=== PATIENT | female | born 1965 | race Caucasian/White ===

== ENCOUNTER 2019-03-07 16:27 | Inpatient (IN) | payer OTHER ==
[~2019-03-07] VITALS: Ht 162.6 cm; Wt 92.1 kg
--- OUTSIDE RECORDS SUMMARY | 2019-03-07 16:31 | XMS REPORT ---
[facility] Address Unknown Phone Unavailable Care Team Providers Care Web Art Director Name Role Phone Unavailable Unavailable Payers Payer Name Policy Type Policy Number Effective Date Expiration Date Problems This patient has no known problems. Allergies, Adverse Reactions, Alerts Allergy Name Allergy Type Status Severity Reaction(s) Onset Date Inactive Date Treating Clinician Comments No Known Allergies DA Active U 2019-03-06 00:00:00 No Known Intolerances DA Active U 2009-04-10 00:00:00 Medications This patient has no known medications. Results Test Description Test Time Test Comments Text Results Atomic Results Result Comments BREAST ULTRASOUND BILATERAL 2018-11-08 15:37:33 - BREAST ULTRASOUND BILATERALULTRASOUND OF BOTH BREASTS AND BOTH AXILLA: 11/08/2018CLINICAL: Abnormal mammogram. Comparison is made to exam dated 05/28/2015 ultrasound - [facility]. Real-time ultrasound of both breasts and both axilla and clinical breast exam was performed. There is a benign 6 mm cyst in the left breast central to the nipple that corresponds to the mammographic findings. No abnormalities were seen sonographically in the right breast or either axilla. Clinical breast exam unremarkable. IMPRESSION: BENIGN There is no sonographic evidence of malignancy. The 6 mm cyst in the left breast is benign. Resume annual screening mammography in one year. Yvette Shah M.D. dm/:11/08/2018 15:37:33 Vacuum Tank Tender: Tarah Givens , [facility] sent: BIRADS 1-2 Normal Ultrasound BI-RADS: 2 Benign SCR MAMM BILATERAL ALEXEI CAD DIGITAL 2018-09-30 08:34:36 - SCR MAMM BILATERAL ALEXEI CAD DIGITALBILATERAL DIGITAL SCREENING MAMMOGRAM 3D/2D WITH CAD: 09/29/2018CLINICAL: Asymptomatic. Digital breast tomosynthesis was performed in addition to routine CC and MLO views. Current mammographic images were evaluated by either a SplashCast M-Vu or a CybEye ImageChecker CAD (computer aided detection system). Comparison is made to exams dated 05/28/2015 mammogram and 05/26/2014 mammogram - [facility]. There are scattered fibroglandular tissues in both breasts. Left breast mass present in the central breast at middle depth.No other suspicious mass, architectural distortion, malignant type calcification, or lymph node abnormality detected. IMPRESSION: INCOMPLETE ASSESSMENT: ADDITIONAL IMAGING EVALUATION RECOMMENDEDLEFT BREAST: Mass in the central breast at middle depth. Ultrasound and possible tomosynthesis spot compression are recommended at this time.Jose F Case M.D. qn/:09/30/2018 08:34:36 Vacuum Tank Tender: Sarai Cho , [facility] sent: Additional Imaging Mammogram BI-RADS: 0 Indeterminate
[2019-03-07] MEDS ORDERED: ONDANSETRON HCL INJ 2MG/ML 2ML 2 MG/ML VIAL IV ONE (17:15)
[2019-03-07] MEDS ORDERED: SODIUM CHLORIDE 0.9% 1000ML 1,000 ML IV STA (17:15)
[2019-03-07 17:31] LABS: BASOPHILS % 0.2 % (0.0-1.0); HEMATOCRIT 44.4 % (34.2-44.1); HEMOGLOBIN 15.1 g/dL (12.0-16.0); LYMPHOCYTES # (AUTO) 1.6 (1.0-3.2); LYMPHOCYTES % 8.9 % (18.0-39.1); MEAN CORPUSCULAR HEMOGLOBIN 31.5 pg (28-32); MEAN CORPUSCULAR VOLUME 92.7 fL (81-99); MONOCYTES # (AUTO) 1.2 (0.2-0.8); MONOCYTES % 6.8 % (4.4-11.3); NEUTROPHILS # (AUTO) 15.1 (2.1-6.9); NEUTROPHILS % 83.5 % (38.7-80.0); PLATELET COUNT 323 x10e3/uL (140-360); RED BLOOD COUNT 4.79 x10e6/uL (3.6-5.1); RED CELL DISTRIBUTION WIDTH 12.4 % (11.7-14.4)
[2019-03-07 17:32] LABS: BILIRUBIN,URINE NEGATIVE (NEGATIVE); CLARITY,URINE SL CLOUDY (CLEAR); COLOR,URINE YELLOW (YELLOW); KETONES,URINE 1+ (NEGATIVE); LEUKOCYTE ESTERASE ,URINE NEGATIVE (NEGATIVE); NITRITE,URINE NEGATIVE (NEGATIVE); PROTEIN,URINE DIPSTICK NEGATIVE (NEGATIVE); URINE UROBILINOGEN 0.2 mg/dL (0.2 - 1)
[2019-03-07 17:55] LABS: BACTERIA,URINE MODERATE /HPF; EPITHELIAL CELLS,URINE MANY /LPF; RBC,URINE 0-5 /HPF (0-5)
[2019-03-07 17:59] LABS: ALANINE AMINOTRANSFERASE 23 IU/L (0-55); ALBUMIN 3.3 g/dL (3.5-5.0); ALBUMIN/GLOBULIN RATIO 0.9 (0.8-2.0); ALKALINE PHOSPHATASE 84 IU/L (40-150); AMYLASE 32 U/L (25-125); ANION GAP 13.5 mmol/L (8-16); BLOOD UREA NITROGEN 11 mg/dL (7-26); BUN/CREATININE RATIO 16 (6-25); CALCIUM 8.7 mg/dL (8.4-10.2); CARBON DIOXIDE 21 mmol/L (22-29); CHLORIDE 99 mmol/L (98-107); CREATINE KINASE 97 IU/L (29-168); EST GLOMERULAR FILTRATION RATE > 60 ML/MIN (60-); GLUCOSE 113 mg/dL (74-118); LIPASE 6 U/L (8-78); POTASSIUM 3.5 mmol/L (3.5-5.1); SODIUM 130 mmol/L (136-145)
--- NOTE | 2019-03-07 18:34 | Diagnostic Imaging Report ---
RIGHT UPPER QUADRANT ULTRASOUND TECHNIQUE: Ultrasound evaluation of the right upper quadrant abdomen. Color Doppler evaluation was utilized to supplement the evaluation. HISTORY: Gallstones, abdominal pain COMPARISON: None available. DISCUSSION: LIVER: No focal lesion identified. The liver measures 14 cm in length in the right mid-clavicular line. BILIARY: Sludge and small echogenic stones within the gallbladder. The sonographic Taylor's sign is reported as negative. Common bile duct measures 0.2 cm. RIGHT KIDNEY: 10 cm in length. No hydronephrosis, solid mass, or cystic lesion identified. PANCREAS: Partially obscured by regional bowel gas, but no abnormality identified within this limitation. PERITONEUM: No free fluid. VASCULATURE: The inferior vena cava is markedly obscured by regional bowel gas, the visualized portions of the aorta and inferior vena cava appear unremarkable. The portal vein is patent with hepatopedal flow. IMPRESSION: Cholelithiasis, without evidence of acute cholecystitis. Signed by: Dr. Hossein Meehan D.O., M.M.M. on 03/07/2019 6:31 PM
[2019-03-07] MEDS ORDERED: ONDANSETRON HCL INJ 2MG/ML 2ML 2 MG/ML VIAL IV PRN (19:15)
[2019-03-07] MEDS ORDERED: HYDROMORPHONE 1MG/1ML INJ IV PRN (19:15)
[2019-03-07] MEDS: METRONIDAZOLE 500MG/NS 100ML 100 ML IV SCH (19:15)
[2019-03-07] MEDS ORDERED: DEXTROSE 5%/LACTATED RINGERS 1,000 ML IV SCH (19:15)
[2019-03-07] MEDS ORDERED: SODIUM CHLORIDE 0.9% 1000ML 1,000 ML ONE (20:16)
[2019-03-07] MEDS: PANTOPRAZOLE 40 MG 10ML VIAL IV SCH (20:24)
[2019-03-07] MEDS: HYDROMORPHONE 1MG/1ML INJ IV PRN (20:55)
[2019-03-07] MEDS: CEFTRIAXONE SOD 2 GM/NS 100 ML 100 ML IV SCH (20:56)
[2019-03-07] MEDS: DEXTROSE 5%/LACTATED RINGERS 1,000 ML IV SCH (21:33)
[2019-03-08] VITALS (11 sets, daily range): BP systolic 96–135; BP diastolic 53–80
[2019-03-08] MEDS ORDERED: METRONIDAZOLE 500MG/NS 100ML 100 ML IV SCH
[2019-03-08] MEDS: METRONIDAZOLE 500MG/NS 100ML 100 ML IV SCH ×5 (01:05→17:46)
--- NOTE | 2019-03-08 01:30 | NUR ---
PATIENT AOX4 NO SIGNS OF RESPIRATORY DISTRESS NOTED. FAMILY MEMBER IS PRESENT AT BEDSIDE AND PATIENT VOICED PAIN AT A LEVEL OF 4 AND WAS PREVIOUSLY MEDICATED IN ER. IV FLUIDS ARE RUNNING AT ORDERED RATE, BED IS LOCKED AND IN LOWEST POSITION, CALL LIGHT WITHIN EASY REACH, WILL CONTINUE TO MONITOR.
[2019-03-08] MEDS: HYDROMORPHONE 1MG/1ML INJ IV PRN ×3 (05:20→21:14)
[2019-03-08] MEDS: ONDANSETRON HCL INJ 2MG/ML 2ML 2 MG/ML VIAL IV PRN ×3 (05:20→21:14)
[2019-03-08] MEDS: DEXTROSE 5%/LACTATED RINGERS 1,000 ML IV SCH ×3 (06:55→23:35)
[2019-03-08 07:32] LABS: BASOPHILS % 0.2 % (0.0-1.0); EOSINOPHILS # (AUTO) 0.1 (0.0-0.4); EOSINOPHILS % 0.3 % (0.0-6.0); HEMATOCRIT 39.8 % (34.2-44.1); HEMOGLOBIN 13.5 g/dL (12.0-16.0); LYMPHOCYTES # (AUTO) 1.5 (1.0-3.2); LYMPHOCYTES % 10.5 % (18.0-39.1); MEAN CORPUSCULAR HEMOGLOBIN 32.1 pg (28-32); MEAN CORPUSCULAR HGB CONC 33.9 g/dL (31-35); MEAN CORPUSCULAR VOLUME 94.5 fL (81-99); MONOCYTES # (AUTO) 1.2 (0.2-0.8); NEUTROPHILS # (AUTO) 11.7 (2.1-6.9); NEUTROPHILS % 80.7 % (38.7-80.0); PLATELET COUNT 288 x10e3/uL (140-360); RED BLOOD COUNT 4.21 x10e6/uL (3.6-5.1); RED CELL DISTRIBUTION WIDTH 12.7 % (11.7-14.4)
[2019-03-08 07:57] LABS: ALANINE AMINOTRANSFERASE 18 IU/L (0-55); ALBUMIN 2.7 g/dL (3.5-5.0); ALBUMIN/GLOBULIN RATIO 0.9 (0.8-2.0); ALKALINE PHOSPHATASE 65 IU/L (40-150); AMYLASE 26 U/L (25-125); ANION GAP 10.6 mmol/L (8-16); BLOOD UREA NITROGEN 7 mg/dL (7-26); BUN/CREATININE RATIO 10 (6-25); CALCIUM 8.2 mg/dL (8.4-10.2); CARBON DIOXIDE 24 mmol/L (22-29); CHLORIDE 105 mmol/L (98-107); CREATININE, SERUM 0.68 mg/dL (0.57-1.11); EST GLOMERULAR FILTRATION RATE > 60 ML/MIN (60-); GLUCOSE 126 mg/dL (74-118); LIPASE 8 U/L (8-78); POTASSIUM 3.6 mmol/L (3.5-5.1); SODIUM 136 mmol/L (136-145)
[2019-03-08] MEDS ORDERED: PANTOPRAZOLE 40 MG 10ML VIAL IV SCH (09:00)
--- NOTE | 2019-03-08 09:09 | NUR ---
PATIENT OFF THE UNIT TO OR- PATIENT IN STABLE CONDITION WITH NO S/S OF RESPIRATORY DISTRESS.
[2019-03-08] MEDS ORDERED: BUPIVACAINE 0.25%/EPI 30ML SDV INJ ONE (09:20)
[2019-03-08] MEDS ORDERED: MEPERIDINE HCL INJ 25 MG/ML VIAL ONE (11:52)
[2019-03-08] MEDS ORDERED: FENTANYL CITRATE/PF 100MCG/2 ML INJ ONE ×2 (12:02→14:56)
--- NOTE | 2019-03-08 12:16 | Operative Report ---
DATE OF PROCEDURE: 03/08/2019 SURGEON: Malcolm Cho MD PREOPERATIVE DIAGNOSIS: Acute cholecystitis. POSTOPERATIVE DIAGNOSES: Acute cholecystitis with hydrops of the gallbladder and pregangrenous changes of the gallbladder. PROCEDURE PERFORMED: Laparoscopic cholecystectomy with decompression of hydrops of the gallbladder. PRECAST CONCRETE IRONWORKER: Christina Carrion, licensed surgical aides teacher. ESTIMATED BLOOD LOSS: Minimal. DRAINS: None. COMPLICATIONS: None. INDICATION AND FINDINGS: This patient is a 53-year-old female who was admitted complaining of severe nausea, vomiting, and abdominal pain. The patient had been seen first at [facility] in the local area. Discharged home. She persisted with the pain. She went to one of the local hospitals in the area and apparently was also discharged home. She presented to our office as an urgent case, self-referred, complaining of severe abdominal pain, nausea, vomiting. The patient at the [facility] had a CT scan that revealed distended gallbladder with stones. Her white count was 13,000. The patient was then admitted for laparoscopic cholecystectomy urgently. INTRAOPERATIVE FINDINGS: Acute cholecystitis with pregangrenous changes and hydrops of the gallbladder. There were severe inflammatory changes in the right upper quadrant due to above. We were able to perform the laparoscopic cholecystectomy after identifying the triangle of safety, namely the cystic duct at the junction with the common bile duct, the cystic artery, and a plate of the liver. At that point, we transected the cystic duct and the cystic artery. DESCRIPTION OF PROCEDURE: With the patient lying on the operative table in the supine position, after administration of general anesthesia, she was prepped and draped for laparoscopic cholecystectomy. The procedure was begun by establishing the pneumoperitoneum in the right upper quadrant midclavicular line because she was an obese lady, and then we insufflated the pneumoperitoneum to 15 mm of pressure, introduced the camera under direct vision. We placed a 10/11 trocar in the umbilical location and then we placed a 10-mm trocar in the subxiphoid port and then another 5-mm trocar in the right anterior axillary line. When we then did general laparoscopy, we found the gallbladder to be tense, distended with thickened inflamed wall with adhesions of the gallbladder to the omentum, which were then bluntly and gently. Then, we decompressed the gallbladder. Then, we went ahead and placed a fifth trocar in the left upper quadrant to gain exposure to the hepatoduodenal ligament on the operative field. We began then the dissection high on the gallbladder until we identified the cystic duct. The junction with the common bile duct was eventually seen. We continued the dissection on the hepatoduodenal ligament until we found the cystic artery, both anterior and posterior branches as well as identify the liver plate. At that point, we transected the cystic duct three times distally, once proximally, and continued the dissection until we identified the cystic arteries and those were transected between two titanium clips distally and once proximally and then we took down the gallbladder from the liver bed using electrocautery dissection. At some point, the dissection was continued. The gallbladder wall was pliable and we got into the gallbladder wall. There was some spillage of bile and stones that were removed. We then grasped the lip of the gallbladder wall and then we resected that from the liver bed, removing all the remaining gallbladder. We went ahead and then placed the gallbladder in an endobag and removed through the umbilical port. After we did that, we inspected the operative field. We made sure that there was no oozing, no bowel leak, no bleeding. We irrigated the operative field, and then we placed a 10-mm flat Néstor-Johns drain in the right upper quadrant near the foramen of [place], brought out through the right anterior axillary line trocar and secured there with 2-0 silk, connected it to self-suction. We then released the pneumoperitoneum and closed the wounds using #0 Vicryl for the umbilical fascia, 3-0 Vicryl for the subcutaneous tissue in that location as well as the subxiphoid port, and the skin of all the ports was closed using kimberly. A 0.25% Marcaine with epinephrine was given as a local block at the end of the case. The patient tolerated the procedure well and was taken to the recovery room in stable condition. MD KAVEH Miller/[place] /[id number]
--- NOTE | 2019-03-08 12:37 | NUR ---
PATIENT BACK ON THE UNIT- PATIENT IN STABLE CONDITION WITH NO S/S OF RESPIRATORY DISTRESS. IV ANTIBIOTIC INFUSING. TROCAR SITES NOTED TO ANTERIOR ABD- LUCIANA DRAIN NOTED TO RUQ TROCAR SITE (MINIMUM DRAINAGE NOTED AT THIS TIME. )
--- NOTE | 2019-03-08 14:55 | NUR ---
Visit made by the Spiritual Care Department Pastoral Visitor, Jennifer Sheffield. PV provided pastoral presence, prayer, hospitality, and supportive listening. Pastoral Visitor informed pt/family of the scope of [employer] and availability. BELKYS FLORES Director Of Food And Nutrition Services Spiritual Care Department O: [phone] Pager: [phone] ([phone] number calling from)
[2019-03-08] MEDS ORDERED: MIDAZOLAM HCL 2 MG/2 ML VIAL ONE (14:56)
[2019-03-08] MEDS ORDERED: ROCURONIUM BROMIDE 10 MG/ML 5ML VIAL ONE (18:42)
[2019-03-08] MEDS ORDERED: DEXAMETHASONE SOD PHOS INJ 4 MG/ML VIAL ONE (18:42)
[2019-03-08] MEDS ORDERED: PROPOFOL IV EMULSION 10 MG/ML 20 ML VIAL ONE (18:42)
[2019-03-08] MEDS ORDERED: KETOROLAC TROMETHAMINE 30 MG/ML VIAL ONE (18:42)
[2019-03-08] MEDS ORDERED: PHENYLEPHRINE HCL 1% 10 MG/ML VIAL ONE (18:42)
[2019-03-08] MEDS ORDERED: NEOSTIGMINE 5 MG/5ML SYR ONE (18:42)
[2019-03-08] MEDS ORDERED: ONDANSETRON HCL INJ 2MG/ML 2ML 2 MG/ML VIAL ONE (18:42)
[2019-03-08] MEDS ORDERED: SEVOFLURANE INHAL SOLN 250 ML PEN BTL ONE (18:42)
[2019-03-08] MEDS ORDERED: GLYCOPYRROLATE INJ 1MG/ 5 ML SYR ONE (18:42)
[2019-03-08] MEDS ORDERED: LIDOCAINE HCL 2% LOCAL INJ 5 ML SDV VIAL INJ ONE (18:42)
--- NOTE | 2019-03-08 19:16 | NUR ---
PATIENT IS IN STABLE CONDITION WITH NO S/S OF RESPIRATORY DISTRESS. PAIN MEDICATION RECENTLY GIVEN. IV FLUIDS INFUSING. TROCAR SITES INTACT- LUCIANA DRAINING. CALL LIGHT IS WITHIN REACH, PATIENT INSTRUCTED TO CALL FOR ASSISTANCE NEEDED. REPORT GIVEN TO ONCOMING NURSE.
[2019-03-08] MEDS: CEFTRIAXONE SOD 2 GM/NS 100 ML 100 ML IV SCH (20:15)
[2019-03-08] MEDS: PANTOPRAZOLE 40 MG 10ML VIAL IV SCH (20:15)
--- NOTE | 2019-03-08 20:15 | NUR ---
PATIENT IS IN STABLE CONDITION NO SIGNS OF DISTRESS NOTED. PATIENT HAS TROCAR SITE ON RIGHT SIDE OF ABDOMEN AND LUCIANA DRAIN FROM PREVIOUS CHOLECYSTECTOMY. FAMILY MEMBER IS PRESENT AT BEDSIDE AND PATIENT VOICED PAIN AT A LEVEL OF 4 AND WAS PREVIOUSLY MEDICATED BY DAY NURSE. IV FLUIDS ARE RUNNING AT ORDERED RATE, BED IS LOCKED AND IN LOWEST POSITION, CALL LIGHT WITHIN EASY REACH, WILL CONTINUE TO MONITOR.
[2019-03-09] VITALS (9 sets, daily range): BP systolic 89–123; BP diastolic 59–80
[2019-03-09] MEDS: METRONIDAZOLE 500MG/NS 100ML 100 ML IV SCH ×4 (01:30→18:00)
[2019-03-09] MEDS: HYDROMORPHONE 1MG/1ML INJ IV PRN ×5 (01:40→23:30)
[2019-03-09] MEDS: ONDANSETRON HCL INJ 2MG/ML 2ML 2 MG/ML VIAL IV PRN (01:40)
--- NOTE | 2019-03-09 01:45 | NUR ---
PATIENTS IV BEGAN TO LEAK FROM RIGHT AC SITE AND PATIENT VOICED BURNING AT THE AREA. NEW IV HAS BEEN PLACED ON RIGHT WRIST AND IS PATENT AND INTACT.
--- NOTE | 2019-03-09 08:00 | NUR ---
Pt in bed. Aox4 and able to verbalize needs. Pt continues on IV fluids and well tolerated. Pain to abdomen after zofia/genie. Dressings are intact with not drainage noted. LUCIANA drain to right lower quadrant with serosanguineous drainage noted.
[2019-03-09 09:14] LABS: BASOPHILS % 0.1 % (0.0-1.0); EOSINOPHILS # (AUTO) 0.1 (0.0-0.4); EOSINOPHILS % 0.4 % (0.0-6.0); HEMATOCRIT 37.2 % (34.2-44.1); HEMOGLOBIN 12.4 g/dL (12.0-16.0); LYMPHOCYTES % 13.8 % (18.0-39.1); MEAN CORPUSCULAR HEMOGLOBIN 31.6 pg (28-32); MEAN CORPUSCULAR HGB CONC 33.3 g/dL (31-35); MEAN CORPUSCULAR VOLUME 94.9 fL (81-99); MONOCYTES # (AUTO) 1.2 (0.2-0.8); MONOCYTES % 8.3 % (4.4-11.3); NEUTROPHILS # (AUTO) 10.9 (2.1-6.9); PLATELET COUNT 276 x10e3/uL (140-360); RED BLOOD COUNT 3.92 x10e6/uL (3.6-5.1); RED CELL DISTRIBUTION WIDTH 13.1 % (11.7-14.4)
[2019-03-09 09:40] LABS: ALANINE AMINOTRANSFERASE 34 IU/L (0-55); ALBUMIN 2.4 g/dL (3.5-5.0); ALBUMIN/GLOBULIN RATIO 0.8 (0.8-2.0); ALKALINE PHOSPHATASE 55 IU/L (40-150); ANION GAP 9.3 mmol/L (8-16); BLOOD UREA NITROGEN 9 mg/dL (7-26); BUN/CREATININE RATIO 13 (6-25); CALCIUM 8.3 mg/dL (8.4-10.2); CARBON DIOXIDE 23 mmol/L (22-29); CHLORIDE 107 mmol/L (98-107); CREATININE, SERUM 0.67 mg/dL (0.57-1.11); EST GLOMERULAR FILTRATION RATE > 60 ML/MIN (60-); GLUCOSE 117 mg/dL (74-118); POTASSIUM 3.3 mmol/L (3.5-5.1); SODIUM 136 mmol/L (136-145)
[2019-03-09] MEDS ORDERED: HYDROCODONE/APAP 7.5MG-325MG 1 EA TAB PO PRN (10:00)
[2019-03-09] MEDS: DEXTROSE 5%/LACTATED RINGERS 1,000 ML IV SCH (12:52)
--- NOTE | 2019-03-09 19:20 | NUR ---
Completed bedside report with morning nurse. Pt alert and orient to name. Lying in bed HOB 75 degrees. Denies pain at this time. Call reyna within reach. Will continue to monitor.
[2019-03-09] MEDS: CEFTRIAXONE SOD 2 GM/NS 100 ML 100 ML IV SCH (19:30)
[2019-03-09] MEDS: PANTOPRAZOLE 40 MG 10ML VIAL IV SCH (19:45)
[2019-03-10] MEDS ORDERED: ACETAMINOPHEN 1000 MG/100 ML 0 ML IV ONE (03:35)
[2019-03-10 04:05] VITALS: BP 100/57
[2019-03-10] MEDS: DEXTROSE 5%/LACTATED RINGERS 1,000 ML IV SCH (05:30)
[2019-03-10] MEDS: METRONIDAZOLE 500MG/NS 100ML 100 ML IV SCH ×2 (05:30)
[2019-03-10 06:08] LABS: BASOPHILS % 0.3 % (0.0-1.0); EOSINOPHILS # (AUTO) 0.3 (0.0-0.4); HEMATOCRIT 37.9 % (34.2-44.1); HEMOGLOBIN 12.6 g/dL (12.0-16.0); LYMPHOCYTES # (AUTO) 2.4 (1.0-3.2); LYMPHOCYTES % 17.8 % (18.0-39.1); MEAN CORPUSCULAR HEMOGLOBIN 31.5 pg (28-32); MEAN CORPUSCULAR HGB CONC 33.2 g/dL (31-35); MEAN CORPUSCULAR VOLUME 94.8 fL (81-99); MONOCYTES # (AUTO) 1.1 (0.2-0.8); MONOCYTES % 8.5 % (4.4-11.3); NEUTROPHILS # (AUTO) 9.5 (2.1-6.9); PLATELET COUNT 246 x10e3/uL (140-360)
[2019-03-10 06:31] LABS: ALANINE AMINOTRANSFERASE 29 IU/L (0-55); ALBUMIN 2.4 g/dL (3.5-5.0); ALBUMIN/GLOBULIN RATIO 0.8 (0.8-2.0); ALKALINE PHOSPHATASE 58 IU/L (40-150); BLOOD UREA NITROGEN 10 mg/dL (7-26); BUN/CREATININE RATIO 15 (6-25); CALCIUM 8.1 mg/dL (8.4-10.2); CARBON DIOXIDE 24 mmol/L (22-29); CHLORIDE 107 mmol/L (98-107); CREATININE, SERUM 0.65 mg/dL (0.57-1.11); EST GLOMERULAR FILTRATION RATE > 60 ML/MIN (60-); GLUCOSE 103 mg/dL (74-118); SODIUM 138 mmol/L (136-145)
[2019-03-10 08:00] VITALS: BP 109/69
[2019-03-10 11:47] VITALS: BP 97/71
[2019-03-10] MEDS ORDERED: POTASSIUM CHLORIDE 20 MEQ TAB CR PO STA (11:58)
--- NOTE | 2019-03-10 11:58 | Discharge Summary ---
ADMITTING DIAGNOSIS: Acute cholecystitis. DISCHARGE DIAGNOSIS: Acute cholecystitis with pregangrenous changes. PROCEDURE PERFORMED: Laparoscopic cholecystectomy on 03/07/2019. HISTORY OF PRESENT ILLNESS AND HOSPITALIZATION COURSE: The patient was admitted from my office with acute cholecystitis. She had been seen in 2 different emergency rooms in the local area and discharged home. The patient was admitted, given intravenous antibiotics, fluids, and then taken to the operating room where she underwent the previously described procedure. POSTOPERATIVE COURSE: The patient received intravenous antibiotics until discharge. Diet was advanced to regular. At the time she was discharged, was tolerating that well. She had a Néstor-Johns drain that was draining serosanguineous fluid in small amounts and this was removed on the day of discharge. The wounds were healing well. She was discharged in stable condition with instructions not to do lifting more than 10 pounds. To follow up in my office in 10 days following discharge. Medications were Tylenol #3, #40, and Levaquin 500 one p.o. for five days. MD KAVEH Miller/[place] /[id number]
[2019-03-10] MEDS ORDERED: TYLENOL WITH C1 EACH PO (12:10)
[2019-03-10] MEDS ORDERED: LEVAQUIN500 MG PO (12:11)
--- NOTE | 2019-03-10 12:44 | NUR ---
Pt discharge home at this time. Right lower quadrant LUCIANA drain was discontinued per physician prior to discharge. Pt verbalized understanding of all discharge instructions and follow up appts. Pt sent home with prescriptions for pain medications and for antibiotics.
== END 2019-03-10 12:53 | disposition home or self-care (01) | DRG 418 ==
LOC: ER 16:27 → ERHOLD 20:36 → MED/SURG3 03-08 00:39
PROVIDERS: ADMIT Surgery; ATTEND Surgery
PROC: 0FT44ZZ Resection of Gallbladder, Percutaneous Endoscopic Approach (ICD-10-PCS; principal; 2019-03-08 09:42)
DX: K80.00 Calculus of gallbladder with acute cholecystitis without obstruction (principal); K82.1 Hydrops of gallbladder; K82.A1 Gangrene of gallbladder in cholecystitis; E86.0 Dehydration
CPT/HCPCS: 36415; 76705; 80053; 81001; 82150; 82550; 82553; 83690; 84484; 85025; 87086; 88304; 93005; 99284; C1766; J0696; J1100; J1170; J1885; J2001; J2175; J2250; J2370; J2405; J3010; J7030

== ENCOUNTER 2019-03-13 07:34 | Inpatient (IN) | payer OTHER ==
[~2019-03-13] VITALS: Ht 162.6 cm; Wt 88.2 kg
[~2019-03-13 07:34] MED LIST: LEVAQUIN500 MG PO; TYLENOL WITH C1 EACH PO
[2019-03-13] MEDS ORDERED: ONDANSETRON HCL INJ 2MG/ML 2ML 2 MG/ML VIAL ONE (07:42)
[2019-03-13] MEDS ORDERED: ONDANSETRON HCL INJ 2MG/ML 2ML 2 MG/ML VIAL IV STA ×2 (07:45→07:49)
[2019-03-13] MEDS ORDERED: SODIUM CHLORIDE 0.9% 1000ML 1,000 ML IV STA (07:45)
[2019-03-13] MEDS ORDERED: PANTOPRAZOLE 40 MG 10ML VIAL IV STA ×2 (07:45→07:49)
[2019-03-13] MEDS ORDERED: PANTOPRAZOLE 40 MG 10ML VIAL ONE (07:48)
[2019-03-13] MEDS ORDERED: SODIUM CHLORIDE 0.9% 1000ML 1,000 ML ONE (07:48)
[2019-03-13] MEDS ORDERED: SODIUM CHLORIDE 0.9% 1000ML 1,000 ML IV ONE (08:00)
[2019-03-13 08:02] LABS: BASOPHILS % 0.2 % (0.0-1.0); EOSINOPHILS % 0.1 % (0.0-6.0); HEMATOCRIT 40.9 % (34.2-44.1); HEMOGLOBIN 14.3 g/dL (12.0-16.0); LYMPHOCYTES # (AUTO) 1.2 (1.0-3.2); MEAN CORPUSCULAR HEMOGLOBIN 31.8 pg (28-32); MEAN CORPUSCULAR VOLUME 91.1 fL (81-99); MONOCYTES % 6.5 % (4.4-11.3); NEUTROPHILS # (AUTO) 12.7 (2.1-6.9); NEUTROPHILS % 84.7 % (38.7-80.0); PLATELET COUNT 342 x10e3/uL (140-360); RED BLOOD COUNT 4.49 x10e6/uL (3.6-5.1); RED CELL DISTRIBUTION WIDTH 12.7 % (11.7-14.4)
[2019-03-13 08:07] LABS: BILIRUBIN,URINE MODERATE (NEGATIVE); CLARITY,URINE CLEAR (CLEAR); COLOR,URINE YELLOW (YELLOW); KETONES,URINE 1+ (NEGATIVE); LEUKOCYTE ESTERASE ,URINE NEGATIVE (NEGATIVE); NITRITE,URINE NEGATIVE (NEGATIVE); PROTEIN,URINE DIPSTICK NEGATIVE (NEGATIVE); URINE UROBILINOGEN 0.2 mg/dL (0.2 - 1)
[2019-03-13 08:24] LABS: BACTERIA,URINE RARE /HPF; EPITHELIAL CELLS,URINE FEW /LPF
[2019-03-13 08:27] LABS: ALANINE AMINOTRANSFERASE 169 IU/L (0-55); ALBUMIN 2.6 g/dL (3.5-5.0); ALBUMIN/GLOBULIN RATIO 0.7 (0.8-2.0); ALKALINE PHOSPHATASE 316 IU/L (40-150); AMYLASE 65 U/L (25-125); ANION GAP 12.8 mmol/L (8-16); BLOOD UREA NITROGEN < 5 mg/dL (7-26); CALCIUM 9.7 mg/dL (8.4-10.2); CARBON DIOXIDE 23 mmol/L (22-29); CHLORIDE 100 mmol/L (98-107); CREATINE KINASE 90 IU/L (29-168); CREATININE, SERUM 0.62 mg/dL (0.57-1.11); EST GLOMERULAR FILTRATION RATE > 60 ML/MIN (60-); GLUCOSE 153 mg/dL (74-118); LIPASE 7 U/L (8-78); MAGNESIUM 1.7 MG/DL (1.3-2.1); SODIUM 133 mmol/L (136-145)
[2019-03-13 08:29] LABS: BUN/CREATININE RATIO 8 (6-25)
[2019-03-13 08:30] LABS: POTASSIUM 2.8 mmol/L (3.5-5.1)
[2019-03-13 08:32] LABS: AMPHETAMINES SCREEN,URINE N (NEGATIVE); BENZODIAZEPINES SCREEN,URINE N (NEGATIVE); PHENCYCLIDINE SCREEN,URINE N (NEGATIVE)
--- NOTE | 2019-03-13 08:32 | Diagnostic Imaging Report ---
EXAMINATION: CHEST SINGLE (PORTABLE) INDICATION: ^ABD PAIN, N/V ^[id number] ^[id number] COMPARISON: None FINDINGS: AP view TUBES and LINES: None. LUNGS: Lungs are well inflated. Small consolidation in the medial right lower lobe. There is no evidence of pneumonia or pulmonary edema. PLEURA: No pleural effusion or pneumothorax. HEART AND MEDIASTINUM: The left ventricle is prominent. BONES AND SOFT TISSUES: No acute osseous lesion. Soft tissues are unremarkable. UPPER ABDOMEN: No free air under the diaphragm. IMPRESSION: Medial right lower lobe airspace opacity with mild volume loss may reflect atelectasis with or without superimposed infection. Recommend follow-up chest radiograph in 4 weeks. Signed by: Dr. Vanessa Deluna M.D. on 03/13/2019 8:29 AM
[2019-03-13] MEDS ORDERED: KCL 20MEQ/.9 SOD CHL 1,000 ML IV ONE ×2 (08:45→10:50)
[2019-03-13] MEDS ORDERED: METRONIDAZOLE 500MG/NS 100ML 100 ML IV SCH (08:45)
[2019-03-13] MEDS ORDERED: POTASSIUM CHLORIDE 20MEQ/15ML UDC PO ONE (08:45)
[2019-03-13] MEDS ORDERED: PIPER-TAZ 3.375 GM 50 ML IV SCH (08:45)
[2019-03-13 08:46] LABS: INR 1.05; PROTHROMBIN TIME 14.2 seconds (11.9-14.5)
[2019-03-13 08:47] LABS: PARTIAL THROMBOPLASTIN TIME 27.5 seconds (23.8-35.5)
[2019-03-13] MEDS ORDERED: SODIUM CHLORIDE 0.9% 50ML 50 ML ONE (08:50)
[2019-03-13] MEDS ORDERED: IOPAMIDOL 370 MG/ML 200 ML INFUS..BTL INJ ONE (08:50)
[2019-03-13 09:56] VITALS: BP 163/81
[2019-03-13 10:03] VITALS: BP 163/81
--- NOTE | 2019-03-13 10:11 | Diagnostic Imaging Report ---
EXAM: CT Abdomen and Pelvis WITH contrast INDICATION: ^S/P LAP BIA 03/07 N/V/ABD PAIN ^[id number] ^[id number] COMPARISON: Gallbladder ultrasound 03/07/2019 TECHNIQUE: Abdomen and pelvis were scanned utilizing a multidetector helical scanner from the lung base to the pubic symphysis after administration of IV contrast. Coronal and sagittal reformations were obtained. Routine protocol was performed. Scan was performed when during portal venous phase. IV CONTRAST: 100 mL of Isovue-370 ORAL CONTRAST: None RADIATION DOSE: Total DLP: 871 mGy*cm Estimated effective dose: (DLP x 0.015 x size factor) mSv COMPLICATIONS: None FINDINGS: LINES and TUBES: None. LOWER THORAX: Subsegmental atelectasis in the right lower lobe. Trace right pleural effusion. HEPATOBILIARY: No focal hepatic lesions. No intrahepatic biliary ductal dilation. GALLBLADDER: Recent cholecystectomy. A 5.9 x 3.4 cm low-attenuation fluid collection at the gallbladder fossa (series 2, image 26). The common bile duct is mildly dilated, measuring 0.8 cm without intraluminal stones. SPLEEN: No splenomegaly. PANCREAS: No focal masses or ductal dilatation. ADRENALS: No adrenal nodules KIDNEYS/URETERS: Kidneys enhance symmetrically. No hydronephrosis. No cystic or solid mass lesions. No stones. GI TRACT: No abnormal distention, wall thickening, or evidence of bowel obstruction. Appendix is normal. PELVIC ORGANS/BLADDER: Hysterectomy. The urinary bladder is unremarkable. LYMPH NODES: No lymphadenopathy. VESSELS: Unremarkable. PERITONEUM / RETROPERITONEUM: No free air or fluid. Mild fat stranding within the right upper quadrant mesenteric fat, likely postoperative. BONES: Unremarkable. SOFT TISSUES: Mild fat stranding with single air focus in the right lateral abdominal wall likely postoperative in nature. IMPRESSION: Recent cholecystectomy with a low-attenuation 5.9 x 3.4 cm loculated fluid at the surgical site, which may represent a postoperative seroma but cannot exclude bile leak. Mild postoperative dilatation of the common bile duct without visualized stones. Signed by: Dr. Vanessa Deluna M.D. on 03/13/2019 10:08 AM
[2019-03-13] MEDS: PIPER-TAZ 3.375 GM 50 ML IV SCH ×3 (10:26→16:56)
[2019-03-13 11:30] VITALS: BP 163/81
[2019-03-13 12:11] VITALS: BP 128/71
[2019-03-13] MEDS: METRONIDAZOLE 500MG/NS 100ML 100 ML IV SCH ×2 (15:54→20:30)
[2019-03-13 20:30] VITALS: BP 115/63
[2019-03-13] MEDS: KCL 20MEQ/.9 SOD CHL 1,000 ML IV SCH (21:00)
[2019-03-13 22:17] VITALS: BP 115/63
[2019-03-14] VITALS (8 sets, daily range): BP systolic 104–140; BP diastolic 56–85
[2019-03-14] MEDS: PIPER-TAZ 3.375 GM 50 ML IV SCH ×5 (00:25→23:53)
[2019-03-14] MEDS: METRONIDAZOLE 500MG/NS 100ML 100 ML IV SCH ×4 (03:45→20:39)
[2019-03-14] MEDS: KCL 20MEQ/.9 SOD CHL 1,000 ML IV SCH ×4 (04:45→20:45)
[2019-03-14 05:54] LABS: BASOPHILS # (AUTO) 0.1 (0.0-0.1); BASOPHILS % 0.6 % (0.0-1.0); EOSINOPHILS # (AUTO) 0.1 (0.0-0.4); EOSINOPHILS % 1.3 % (0.0-6.0); HEMATOCRIT 35.4 % (34.2-44.1); HEMOGLOBIN 12.2 g/dL (12.0-16.0); LYMPHOCYTES # (AUTO) 1.9 (1.0-3.2); LYMPHOCYTES % 18.5 % (18.0-39.1); MEAN CORPUSCULAR HGB CONC 34.5 g/dL (31-35); MEAN CORPUSCULAR VOLUME 92.9 fL (81-99); MONOCYTES # (AUTO) 0.8 (0.2-0.8); MONOCYTES % 7.9 % (4.4-11.3); NEUTROPHILS # (AUTO) 7.2 (2.1-6.9); NEUTROPHILS % 71.1 % (38.7-80.0); PLATELET COUNT 290 x10e3/uL (140-360); RED BLOOD COUNT 3.81 x10e6/uL (3.6-5.1); RED CELL DISTRIBUTION WIDTH 13.2 % (11.7-14.4)
[2019-03-14 06:16] LABS: ALANINE AMINOTRANSFERASE 207 IU/L (0-55); ALBUMIN 2.2 g/dL (3.5-5.0); ALBUMIN/GLOBULIN RATIO 0.7 (0.8-2.0); ALKALINE PHOSPHATASE 285 IU/L (40-150); ANION GAP 12.6 mmol/L (8-16); BLOOD UREA NITROGEN < 5 mg/dL (7-26); CALCIUM 8.4 mg/dL (8.4-10.2); CARBON DIOXIDE 19 mmol/L (22-29); CHLORIDE 112 mmol/L (98-107); EST GLOMERULAR FILTRATION RATE > 60 ML/MIN (60-); GLUCOSE 82 mg/dL (74-118); POTASSIUM 3.6 mmol/L (3.5-5.1); SODIUM 140 mmol/L (136-145)
[2019-03-14 06:17] LABS: BUN/CREATININE RATIO 8 (6-25)
--- NOTE | 2019-03-14 07:00 | NUR ---
RCD PT AT BED PT IS ALERT AND ORIENTED PT RESTING ON BED IV PATENT BY SALINE FLUSH BED LOW AND LOCKED CALL LIGHT IN REACH
--- NOTE | 2019-03-14 07:14 | NUR ---
REPORT GIVEN TO ONCOMING NURSE,WALKING ROUNDS MADE.PT RESTING IN BED WITH NO S/S OF DISTRESS.CALL LIGHT WITHIN EASY REACH.
--- NOTE | 2019-03-14 08:06 | NUR ---
PT WENT TO PROCEDURE IN SAFE CONDITION
--- NOTE | 2019-03-14 11:10 | NUR ---
ASSESSMENT: Spiritual Distress Pt fearful concerning procedure. Pt states she is "scared" concerning second recent surgical procedure. Pt identifies as Yazidi. Pt states she has support of family/friends. Pt expressed emotions thru words and tears. Intervention: Provided calming, unhurried pastoral presence. Provided prayer and blessing. Outcome: Pt expressed appreciation for visit. Will follow as able. BELKYS FLORES [place] Spiritual Care Department O: [phone] Pager: [phone] ([phone] number calling from)
--- NOTE | 2019-03-14 11:50 | NUR ---
PT WENT TO PROCEDURE IN SAFE CONDITION
[2019-03-14] MEDS ORDERED: IOPAMIDOL 300MG/ML 50ML INFUS..BTL IV ONE (12:00)
--- NOTE | 2019-03-14 12:00 | NUR ---
PT CAME BACK THE PROCEDURE WILL BE AT 1436
--- NOTE | 2019-03-14 12:05 | Consultation ---
DATE OF CONSULTATION: 03/14/2019 CHIEF COMPLAINT: Abdominal pain. HISTORY OF PRESENT ILLNESS: The patient is a 53-year-old female with a past medical history of gallstones, who presented to the ED with reports of abdominal pain and nausea and vomiting for the past four days. The patient states that she had been to two other ERs and had a CT scan of the abdomen, which was found to have distended gallbladder with stones. The patient underwent cholecystectomy. Post cholecystectomy, the patient had trouble tolerating p.o. and had abdominal pain along with nausea and vomiting. The patient was also found to have abnormal labs. She had elevated LFTs, T-bili 3.4, AST 303, ALT was 169. Also, her potassium was 2.8. Upon review of abdominal CT, the patient had mild postoperative dilatation of the common bile duct without visualized stones, recent cholecystectomy with low-attenuation 5.9 x 3.4 cm loculated fluid at the surgical site, which may represent a postoperative stoma, but cannot exclude bile leak. PAST MEDICAL HISTORY: Gallstones. PAST SURGICAL HISTORY: Hysterectomy, recent cholecystectomy. SOCIAL HISTORY: Smoker. Does not report of any alcohol use. FAMILY HISTORY: Hypertension. ALLERGIES: NO KNOWN DRUG ALLERGIES. MEDICATIONS: The patient is currently on Flagyl, potassium, and Zofran. REVIEW OF SYSTEMS: CONSTITUTIONAL: Denies any chest pain, fever, weight loss. HEENT: Denies any hearing loss or difficulty swallowing. RESPIRATORY: Denies any shortness of breath or wheezing. CARDIOVASCULAR: Denies any chest pain or shortness of breath. GI: Reports abdominal pain and some nausea. : Denies any polyuria. MUSCULOSKELETAL: Denies any joint pain. All other sections negative. PHYSICAL EXAMINATION: VITALS: Temperature 98.8, pulse 65, respiratory rate 18, blood pressure 104/56. CONSTITUTIONAL: Alert and oriented. HEENT: Head is normocephalic and atraumatic. NECK: Trachea midline. CARDIOVASCULAR: Heart rate and rhythm regular. LUNGS: Clear to auscultation bilaterally. GI: Slight tenderness in epigastric region. No palpable masses. Bowel sounds active. MUSCULOSKELETAL: Normal movement. ASSESSMENT: 1. Abdominal pain and nausea and vomiting, secondary to suspected bile leak on HIDA scan. 2. Elevated liver function tests. 3. Hypokalemia. PLAN: 1. Plan for ERCP today with Dr. Ramirez. Consent has been ordered. The patient is already n.p.o. 2. Discussed results and procedure with the patient at length. 3. Discontinue IV fluids. 4. Replace electrolytes. 5. Follow labs closely and monitor LFTs. Please call with any questions. Dictated by Dagmar Brewster PA-C Shon Ramirez MD SS/MODL /[id number] cc: Dagmar Brewster PA-C
--- NOTE | 2019-03-14 14:00 | NUR ---
OR NURSE TALKED THE PROCEDURE AT 1800
[2019-03-14] MEDS ORDERED: ONDANSETRON HCL INJ 2MG/ML 2ML 2 MG/ML VIAL ONE (14:18)
[2019-03-14] MEDS ORDERED: LIDOCAINE HCL 2% LOCAL INJ 5 ML SDV VIAL INJ ONE (14:18)
[2019-03-14] MEDS ORDERED: SEVOFLURANE INHAL SOLN 250 ML PEN BTL ONE (14:18)
[2019-03-14] MEDS ORDERED: PROPOFOL IV EMULSION 10 MG/ML 20 ML VIAL ONE (14:18)
[2019-03-14] MEDS ORDERED: ROCURONIUM BROMIDE 10 MG/ML 5ML VIAL ONE (14:18)
[2019-03-14] MEDS ORDERED: GLYCOPYRROLATE INJ 1MG/ 5 ML SYR ONE (14:18)
[2019-03-14] MEDS ORDERED: NEOSTIGMINE 5 MG/5ML SYR ONE (14:18)
[2019-03-14] MEDS ORDERED: DEXAMETHASONE SOD PHOS INJ 4 MG/ML VIAL ONE (14:18)
--- NOTE | 2019-03-14 17:50 | NUR ---
PT WENT TO PROCEDURE IN SAFE CONDITION
--- NOTE | 2019-03-14 18:58 | NUR ---
PT ON PROCEDURE VERBAL REPORT GIVEN TO ONCOMING NURSE
--- NOTE | 2019-03-14 19:00 | NUR ---
received report from day nurse. patient is resting comfortably in bed. bed is in lowest position and call reyna is within reach. will continue to monitor patient.
[2019-03-14] MEDS ORDERED: MIDAZOLAM HCL 2 MG/2 ML VIAL ONE (19:28)
[2019-03-14] MEDS ORDERED: FENTANYL CITRATE/PF 100MCG/2 ML INJ ONE (19:28)
--- NOTE | 2019-03-14 19:28 | Diagnostic Imaging Report ---
ADDENDUM #1 Fluoroscopic time and dose were not recorded. 33 fluoroscopic images were obtained. Signed by: Dr. Yuan Quiles MD on 03/21/2019 9:22 PM ORIGINAL REPORT Endoscopic retrograde cholangiopancreatogram CPT CODE: 60144 INDICATION: Stent placement, status post cholecystectomy; surgical report not provided. COMPARISON: HIDA scan 03/14/2019, CT abdomen/pelvis 03/13/2019 TECHNIQUE: Fluoroscopic assistance was provided to the hog feeder. Multiple fluoroscopic views of the pancreatic and biliary ductal systems were obtained. FINDINGS: The gallbladder is not visualized. There are surgical clips in the gallbladder fossa. Biliary tree: No evidence of beading or narrowing. No evidence of choledocholithiasis. A balloon was placed into the distal common bile duct. One image demonstrates multiple air bubbles. The cystic duct is opacified with a small amount of extravasation. Subsequently, a stent was placed. No evidence of extrinsic compression. No evidence of communication with the fluid collection in the gallbladder fossa as identified on CT. Pancreas duct: Not opacified. A wire is present in the expected location of the pancreas duct. IMPRESSION: 1. Small bile leak at the cystic duct. 2. Common bile duct stent in appropriate position. Signed by: Dr. Yuan Quiles MD on 03/14/2019 7:25 PM
[2019-03-15] VITALS (7 sets, daily range): BP systolic 129–161; BP diastolic 67–94
[2019-03-15] MEDS: MORPHINE SULFATE INJ 4 MG/ML INJ 1ML IV PRN ×3 (01:49→17:45)
[2019-03-15] MEDS: ONDANSETRON HCL INJ 2MG/ML 2ML 2 MG/ML VIAL IV PRN ×5 (01:50→21:30)
--- NOTE | 2019-03-15 01:58 | Operative Report ---
DATE OF PROCEDURE: 03/14/2019 SURGEON: Shon Ramirez MD PROCEDURE: ERCP. INDICATION: Bile leak. POSTOPERATIVE DIAGNOSIS: Bile leak and also common bile duct sludge. PROCEDURE IN DETAIL: The risks and benefits were discussed with the patient prior to the procedure. The patient understands risk of bleeding, infection, perforation, and medication reaction as well as pancreatitis. The patient was brought to the procedure room in stable condition and the patient was intubated. The patient was sedated under general anesthesia and the Olympus duodenoscope was inserted into the mouth, it was passed all the way into the second portion of duodenum. The ampulla was identified and cannulation was obtained with the sphincterotome. A wire was initially placed into the pancreatic duct. No pancreatic duct injection was performed. The bile duct is dilated up to about 10 mm. A wire was inserted into the bile duct and then the endoscopic sphincterotomy was performed. A balloon sweep removed some sludge from the bile duct and also shows a small leak from the cystic duct stump, and subsequently, 10-St Helenian 5 cm stent was placed into the bile duct with good drainage. Position was obtained or confirmed endoscopically as well as the cardiologically. The patient without any problem. RECOMMENDATIONS: Continue the current care. Follow labs. And we need to do an ERCP with stent removal in about 8-12 weeks. Shon Ramirez MD DHD/MODL /[id number] cc: MD Shorty Miller MD
[2019-03-15] MEDS: METRONIDAZOLE 500MG/NS 100ML 100 ML IV SCH ×3 (02:06→12:00)
[2019-03-15] MEDS: KCL 20MEQ/.9 SOD CHL 1,000 ML IV SCH ×3 (04:45→22:30)
[2019-03-15 05:16] LABS: BASOPHILS % 0.2 % (0.0-1.0); HEMATOCRIT 41.2 % (34.2-44.1); LYMPHOCYTES # (AUTO) 0.8 (1.0-3.2); LYMPHOCYTES % 6.3 % (18.0-39.1); MEAN CORPUSCULAR VOLUME 94.1 fL (81-99); MONOCYTES # (AUTO) 0.2 (0.2-0.8); MONOCYTES % 1.4 % (4.4-11.3); NEUTROPHILS % 90.8 % (38.7-80.0); PLATELET COUNT 378 x10e3/uL (140-360); RED BLOOD COUNT 4.38 x10e6/uL (3.6-5.1); RED CELL DISTRIBUTION WIDTH 13.4 % (11.7-14.4)
[2019-03-15] MEDS: PIPER-TAZ 3.375 GM 50 ML IV SCH ×3 (05:16→17:40)
[2019-03-15 05:34] LABS: ALANINE AMINOTRANSFERASE 195 IU/L (0-55); ALBUMIN 2.6 g/dL (3.5-5.0); ALBUMIN/GLOBULIN RATIO 0.7 (0.8-2.0); ALKALINE PHOSPHATASE 327 IU/L (40-150); ANION GAP 19.3 mmol/L (8-16); BLOOD UREA NITROGEN 8 mg/dL (7-26); BUN/CREATININE RATIO 12 (6-25); CALCIUM 8.8 mg/dL (8.4-10.2); CARBON DIOXIDE 14 mmol/L (22-29); CHLORIDE 108 mmol/L (98-107); CREATININE, SERUM 0.65 mg/dL (0.57-1.11); EST GLOMERULAR FILTRATION RATE > 60 ML/MIN (60-); GLUCOSE 106 mg/dL (74-118); POTASSIUM 4.3 mmol/L (3.5-5.1); SODIUM 137 mmol/L (136-145)
--- NOTE | 2019-03-15 07:00 | NUR ---
BEDSIDE SHIFT REPORT RECEIVED FROM WRECKING CAR DRIVER RN. PT DENIES NEEDS AT THIS TIME.
--- NOTE | 2019-03-15 07:05 | NUR ---
report given to day nurse. patient is resting comfortably in bed. bed is in lowest position and call reyna is within reach.
--- NOTE | 2019-03-15 11:55 | NUR ---
FOLLOW UP VISIT: Pt's [id number] and granddaughter at bedside. Pt states she is "nauseated." Provided prayer. Reminded pt of availability of [employer]ender [employer]. Will continue to follow as able. BELKYS FLORES [employer] Spiritual Care Department O: [phone] Pager: [phone] ([phone] number calling from)
--- NOTE | 2019-03-15 13:13 | NUR ---
pt nauseated and vomiting since clear liquid diet started. pt given zofran.
--- NOTE | 2019-03-15 19:10 | NUR ---
Patient visited in room during nursing rounds. Patient alert and oriented x3. Pt on IVF (NS with 20KCL at 125ml/hr). Pt having frequent nausea and dry heaves. at bedside. Call reyna within reach.
[2019-03-15] MEDS: ZOLPIDEM TARTRATE 10 MG TAB PO PRN (22:30)
[2019-03-16] VITALS (9 sets, daily range): BP systolic 130–154; BP diastolic 63–107
[2019-03-16] MEDS: PIPER-TAZ 3.375 GM 50 ML IV SCH ×5 (00:10→23:25)
[2019-03-16] MEDS: KCL 20MEQ/.9 SOD CHL 1,000 ML IV SCH ×2 (04:45→12:54)
[2019-03-16 05:28] LABS: BASOPHILS # (AUTO) 0.1 (0.0-0.1); BASOPHILS % 0.2 % (0.0-1.0); EOSINOPHILS # (AUTO) 0.1 (0.0-0.4); EOSINOPHILS % 0.2 % (0.0-6.0); HEMATOCRIT 41.6 % (34.2-44.1); HEMOGLOBIN 14.5 g/dL (12.0-16.0); LYMPHOCYTES # (AUTO) 1.4 (1.0-3.2); LYMPHOCYTES % 5.3 % (18.0-39.1); MEAN CORPUSCULAR HEMOGLOBIN 31.9 pg (28-32); MEAN CORPUSCULAR HGB CONC 34.9 g/dL (31-35); MEAN CORPUSCULAR VOLUME 91.4 fL (81-99); MONOCYTES # (AUTO) 1.5 (0.2-0.8); MONOCYTES % 5.8 % (4.4-11.3); NEUTROPHILS # (AUTO) 22.3 (2.1-6.9); NEUTROPHILS % 87.3 % (38.7-80.0); PLATELET COUNT 408 x10e3/uL (140-360); RED BLOOD COUNT 4.55 x10e6/uL (3.6-5.1); RED CELL DISTRIBUTION WIDTH 13.5 % (11.7-14.4)
[2019-03-16 05:49] LABS: ALANINE AMINOTRANSFERASE 148 IU/L (0-55); ALBUMIN 2.4 g/dL (3.5-5.0); ALBUMIN/GLOBULIN RATIO 0.7 (0.8-2.0); ALKALINE PHOSPHATASE 234 IU/L (40-150); ANION GAP 14.6 mmol/L (8-16); BLOOD UREA NITROGEN 6 mg/dL (7-26); BUN/CREATININE RATIO 11 (6-25); CALCIUM 8.5 mg/dL (8.4-10.2); CARBON DIOXIDE 18 mmol/L (22-29); CHLORIDE 100 mmol/L (98-107); CREATININE, SERUM 0.57 mg/dL (0.57-1.11); EST GLOMERULAR FILTRATION RATE > 60 ML/MIN (60-); GLUCOSE 114 mg/dL (74-118); POTASSIUM 3.6 mmol/L (3.5-5.1); SODIUM 129 mmol/L (136-145)
[2019-03-16] MEDS: PANTOPRAZOLE SOD 40 MG TABEC PO SCH (06:50)
[2019-03-16 06:54] LABS: NEUTROPHILS % (MANUAL) 100 % (40-74); RBC MORPHOLOGY COMMENT NORMAL
[2019-03-16] MEDS ORDERED: DIATRIZOATE MEGL/DIATRIZOA SOD 30 ML BTL PO ONE (07:00)
--- NOTE | 2019-03-16 07:00 | NUR ---
BEDSIDE SHIFT REPORT RECEIVED FROM COPY READER RN. PT DENIES NEEDS AT THIS TIME.
--- NOTE | 2019-03-16 08:10 | Progress Note ---
DATE: 03/16/2019 SUBJECTIVE: The patient has less nausea today. OBJECTIVE: VITAL SIGNS: She is afebrile with stable vital signs. ABDOMEN: Soft without any peritoneal signs. The wounds are clean. LABORATORY DATA: Admission labs reveal white count of 25,000, which was repeated revealing the same value. Liver chemistries are coming down progressively. ASSESSMENT: 1. Status post laparoscopic cholecystectomy with pregangrenous changes, status post ERCP for liver bed fossa bile leak. 2. Increase in white count, must rule out intraabdominal abscess with infected biloma. The plan is to repeat CT scan with oral and IV contrast and drainage of biloma, most likely. MD KAVEH Miller/[place] /[id number]
--- NOTE | 2019-03-16 09:28 | Diagnostic Imaging Report ---
EXAM: CT Abdomen and Pelvis WITH intravenous contrast INDICATION: Abdominal pain, bile leak COMPARISON: CT abdomen pelvis of 03/13/2019, ERCP of 03/14/2019 TECHNIQUE: Abdomen and pelvis were scanned utilizing a multidetector helical scanner from the lung base to the pubic symphysis after administration of IV contrast. Coronal and sagittal reformations were obtained. Routine protocol was performed. Scan was performed during portal venous phase. IV CONTRAST: 100mL of Isovue 370 ORAL CONTRAST: Gastrografin RADIATION DOSE: Total DLP: 780.6 mGy*cm Dose modulation, iterative reconstruction, and/or weight based adjustment of the mA/kV was utilized to reduce the radiation dose to as low as reasonably achievable. FINDINGS: LOWER THORAX: Normal. HEPATOBILIARY: Mild diffuse hepatic steatosis. 6 mm left hepatic hypodensity is too small to adequately characterize. No other focal liver lesions. No intrahepatic biliary ductal dilation. Status post cholecystectomy. There is a persistent 4.8 x 3.0 cm fluid collection in the gallbladder fossa (17HU) consistent with small bile collection versus seroma. SPLEEN: No splenomegaly. PANCREAS: Compared to the prior CT of 03/13/2019, there is new peripancreatic fat stranding and small amount of free fluid adjacent to the pancreatic head and uncinate process with mild associated duodenal wall thickening. ADRENALS: No adrenal nodules. KIDNEYS/URETERS: No hydronephrosis or renal calculi. PELVIC ORGANS/BLADDER: Unremarkable. PERITONEUM / RETROPERITONEUM: Status post hysterectomy. LYMPH NODES: No lymphadenopathy. VESSELS: Unremarkable. GI TRACT: Diverticulosis without CT evidence of diverticulitis. No abnormal bowel wall thickening. No bowel obstruction. Normal appendix. BONES AND SOFT TISSUES: No acute osseous injury. No suspicious lytic or blastic lesions. IMPRESSION: Pancreatic fat stranding and small amount of free fluid adjacent to the pancreatic head and uncinate process with associated duodenal wall thickening. Findings are compatible with interval development of pancreatitis. Status post cholecystectomy. Persistent 4.8 x 3.0 cm fluid collection in the gallbladder fossa, most compatible with biloma given ERCP findings of small bile leak. The above findings were discussed with Dr. Cho on 03/16/2019 9:06 AM, who responded indicating that the communication was understood. Signed by: Italia Buenrostro MD on 03/16/2019 9:24 AM
[2019-03-16 09:55] LABS: AMYLASE 281 U/L (25-125); LIPASE 333 U/L (8-78)
[2019-03-16] MEDS: MORPHINE SULFATE INJ 4 MG/ML INJ 1ML IV PRN ×2 (13:19→23:31)
[2019-03-16] MEDS: ONDANSETRON HCL INJ 2MG/ML 2ML 2 MG/ML VIAL IV PRN (13:20)
--- NOTE | 2019-03-16 14:55 | Diagnostic Imaging Report ---
PROCEDURE: Fluid collection aspiration Procedural Personnel Attending physician(s): Italia Buenrostro MD Fellow physician(s): None Resident physician(s): None Advanced practice provider(s): None Pre-procedure diagnosis: Bile leak Post-procedure diagnosis: Same Indication: Bile leak s/p cholecystectomy. Additional clinical history: None Complications: No immediate complications. IMPRESSION: Percutaneous aspiration of gallbladder fossa fluid collection/phlegmon, yielding 5 mL of bilious fluid. No drainage catheter was left in place. Plan: Fluid for gram stain and fluid culture. PROCEDURE SUMMARY: - Aspiration of gallbladder fossa fluid under ultrasound guidance - Additional procedure(s): None PROCEDURE DETAILS: Pre-procedure Consent: Informed consent for the procedure including risks, benefits and alternatives was obtained and time-out was performed prior to the procedure. Preparation: The site was prepared and draped using maximal sterile barrier technique including cutaneous antisepsis. Anesthesia/sedation Level of anesthesia/sedation: No sedation Fluid collection aspiration The patient was positioned supine. Initial imaging was performed. Local anesthesia was administered. The fluid collection was accessed using an access needle. Position within the fluid collection was confirmed, and fluid aspiration was performed. All instruments were then removed. - Initial imaging findings: Gallbladder fossa with fluid and complex echogenic material consistent with phlegmon - Aspiration needle/catheter: 20 gauge BD spinal needle - Post-aspiration imaging findings: Persistent small collection/phlegmon Contrast Contrast agent: None Radiation Dose None. Ultrasound guidance only. Additional Details Additional description of procedure: None Equipment details: None Specimens removed: Aspirated fluid was sent for analysis. Estimated blood loss (mL): Less than 10 Standardized report: [id number] Attestation Signer name: Italia Buenrostro MD I attest that I was present for the entire procedure. I reviewed the stored images and agree with the report as written. Signed by: Italia Buenrostro MD on 03/16/2019 2:51 PM
[2019-03-16] MEDS ORDERED: SODIUM CHLORIDE 0.9% 50ML 50 ML ONE (15:30)
[2019-03-16] MEDS ORDERED: IOPAMIDOL 370 MG/ML 200 ML INFUS..BTL INJ ONE (15:31)
[2019-03-16] MEDS: ZOLPIDEM TARTRATE 10 MG TAB PO PRN (20:59)
[2019-03-17] MEDS: KCL 20MEQ/.9 SOD CHL 1,000 ML IV SCH ×4 (04:45→12:45)
[2019-03-17 05:17] LABS: BASOPHILS # (AUTO) 0.1 (0.0-0.1); BASOPHILS % 0.3 % (0.0-1.0); EOSINOPHILS # (AUTO) 0.1 (0.0-0.4); EOSINOPHILS % 0.2 % (0.0-6.0); HEMATOCRIT 40.3 % (34.2-44.1); HEMOGLOBIN 13.9 g/dL (12.0-16.0); LYMPHOCYTES # (AUTO) 1.5 (1.0-3.2); LYMPHOCYTES % 5.4 % (18.0-39.1); MEAN CORPUSCULAR HGB CONC 34.5 g/dL (31-35); MEAN CORPUSCULAR VOLUME 92.9 fL (81-99); MONOCYTES # (AUTO) 1.5 (0.2-0.8); MONOCYTES % 5.3 % (4.4-11.3); NEUTROPHILS # (AUTO) 23.9 (2.1-6.9); NEUTROPHILS % 87.6 % (38.7-80.0); PLATELET COUNT 379 x10e3/uL (140-360); RED BLOOD COUNT 4.34 x10e6/uL (3.6-5.1); RED CELL DISTRIBUTION WIDTH 13.8 % (11.7-14.4)
[2019-03-17] MEDS: PIPER-TAZ 3.375 GM 50 ML IV SCH ×4 (05:25→23:49)
[2019-03-17 05:43] LABS: ALANINE AMINOTRANSFERASE 97 IU/L (0-55); ALBUMIN 2.1 g/dL (3.5-5.0); ALBUMIN/GLOBULIN RATIO 0.6 (0.8-2.0); ALKALINE PHOSPHATASE 187 IU/L (40-150); AMYLASE 112 U/L (25-125); ANION GAP 14.4 mmol/L (8-16); BLOOD UREA NITROGEN 5 mg/dL (7-26); BUN/CREATININE RATIO 8 (6-25); CALCIUM 8.6 mg/dL (8.4-10.2); CARBON DIOXIDE 20 mmol/L (22-29); CHLORIDE 102 mmol/L (98-107); EST GLOMERULAR FILTRATION RATE > 60 ML/MIN (60-); GLUCOSE 94 mg/dL (74-118); LIPASE 85 U/L (8-78); POTASSIUM 3.4 mmol/L (3.5-5.1); SODIUM 133 mmol/L (136-145)
[2019-03-17 05:51] VITALS: BP 138/81
--- NOTE | 2019-03-17 07:00 | NUR ---
BEDSIDE SHIFT REPORT RECEIVED FROM THE VENDING MACHINE REPAIRER RN. EDUCATED PT ABOUT FALL PRECAUTIONS. BED IS LOW AND LOCKED. SIDE RAILS X2. CALL LIGHT WITH IN EASY REACH. INFORMED PT TO USE CALL LIGHT FOR ANY NEEDS. PT VERBALIZED UNDERSTANDING. PT DENIES NEEDS AT THIS TIME.
[2019-03-17] MEDS: PANTOPRAZOLE SOD 40 MG TABEC PO SCH (08:30)
[2019-03-17 08:32] VITALS: BP 144/58
[2019-03-17 08:36] VITALS: BP 146/58
--- NOTE | 2019-03-17 09:25 | NUR ---
DR Deonna BAI AT BEDSIDE. NEW ORDER FOR CLEAR LIQUID DIET.
[2019-03-17 10:51] LABS: RBC MORPHOLOGY COMMENT NORMAL
--- NOTE | 2019-03-17 11:00 | NUR ---
RECEIVED CALL FROM LAB REGARDING MICROBIOLOGY RESULT. PAGED DR. Deonna BAI OFFICE AND INFORMED THE RESULT.
[2019-03-17 12:20] VITALS: BP 159/93
[2019-03-17 16:07] VITALS: BP 169/92
--- NOTE | 2019-03-17 19:00 | NUR ---
BEDSIDE SHIFT REPORT GIVEN TO THE CREDIT RISK OFFICER RN. PT DENIED FURTHER NEEDS.
[2019-03-17 20:00] VITALS: BP 153/94
[2019-03-17] MEDS: ZOLPIDEM TARTRATE 10 MG TAB PO PRN (22:17)
[2019-03-18] VITALS (9 sets, daily range): BP systolic 140–156; BP diastolic 82–93
[2019-03-18] MEDS: MORPHINE SULFATE INJ 4 MG/ML INJ 1ML IV PRN ×2 (01:30→21:00)
[2019-03-18 05:03] LABS: BASOPHILS # (AUTO) 0.1 (0.0-0.1); BASOPHILS % 0.2 % (0.0-1.0); HEMATOCRIT 36.5 % (34.2-44.1); HEMOGLOBIN 12.7 g/dL (12.0-16.0); LYMPHOCYTES # (AUTO) 1.8 (1.0-3.2); LYMPHOCYTES % 7.6 % (18.0-39.1); MEAN CORPUSCULAR HEMOGLOBIN 31.9 pg (28-32); MEAN CORPUSCULAR HGB CONC 34.8 g/dL (31-35); MEAN CORPUSCULAR VOLUME 91.7 fL (81-99); MONOCYTES # (AUTO) 1.1 (0.2-0.8); MONOCYTES % 4.8 % (4.4-11.3); NEUTROPHILS # (AUTO) 20.3 (2.1-6.9); NEUTROPHILS % 86.2 % (38.7-80.0); PLATELET COUNT 372 x10e3/uL (140-360); RED BLOOD COUNT 3.98 x10e6/uL (3.6-5.1); RED CELL DISTRIBUTION WIDTH 13.7 % (11.7-14.4)
[2019-03-18 05:21] LABS: ALANINE AMINOTRANSFERASE 63 IU/L (0-55); ALBUMIN 1.9 g/dL (3.5-5.0); ALBUMIN/GLOBULIN RATIO 0.5 (0.8-2.0); ALKALINE PHOSPHATASE 148 IU/L (40-150); AMYLASE 40 U/L (25-125); ANION GAP 11.2 mmol/L (8-16); BLOOD UREA NITROGEN < 5 mg/dL (7-26); CALCIUM 8.2 mg/dL (8.4-10.2); CARBON DIOXIDE 22 mmol/L (22-29); CHLORIDE 101 mmol/L (98-107); CREATININE, SERUM 0.54 mg/dL (0.57-1.11); EST GLOMERULAR FILTRATION RATE > 60 ML/MIN (60-); GLUCOSE 125 mg/dL (74-118); LIPASE 28 U/L (8-78); POTASSIUM 3.2 mmol/L (3.5-5.1); SODIUM 131 mmol/L (136-145)
[2019-03-18 05:28] LABS: BUN/CREATININE RATIO 9 (6-25)
[2019-03-18] MEDS: PIPER-TAZ 3.375 GM 50 ML IV SCH ×4 (05:47→23:58)
[2019-03-18] MEDS: KCL 20MEQ/.9 SOD CHL 1,000 ML IV SCH ×3 (05:50→20:45)
[2019-03-18 06:36] LABS: RBC MORPHOLOGY COMMENT NORMAL
[2019-03-18 06:37] LABS: PLATELET MORPHOLOGY COMMENT FEW LARGE
--- NOTE | 2019-03-18 07:00 | NUR ---
BEDSIDE SHIFT REPORT RECEIVED FROM THE SUPERVISOR CARPENTERS RN. EDUCATED PT ABOUT FALL PRECAUTIONS. BED IS LOW AND LOCKED. SIDE RAILS X2. CALL LIGHT WITH IN EASY REACH. INFORMED PT TO USE CALL LIGHT FOR ANY NEEDS. PT VERBALIZED UNDERSTANDING. PT DENIES NEEDS AT THIS TIME.
[2019-03-18] MEDS: PANTOPRAZOLE SOD 40 MG TABEC PO SCH (07:42)
--- NOTE | 2019-03-18 09:15 | NUR ---
ASSESSMENT: Spiritual distress Visit made by GREG Floyd. Pt overwhelmed by illness. Pt's at bedside. Pt expressed emotions by words and tears. Intervention: Channel Director provided pastoral presence, emotional support and prayer. Outcome: Pt & expressed appreciation for visit. [facility] O: [phone] Pager: [phone] ([phone] number calling from)
[2019-03-18] MEDS ORDERED: POTASSIUM CHLORIDE 20 MEQ TAB CR PO ONE ×2 (10:00→14:00)
--- NOTE | 2019-03-18 19:00 | NUR ---
BEDSIDE SHIFT GIVEN TO THE RUBBER GOODS FINISHER RN. PT DENIED FURTHER NEEDS. FAMILY AT BEDSIDE.
[2019-03-18] MEDS: ONDANSETRON HCL INJ 2MG/ML 2ML 2 MG/ML VIAL IV PRN (21:00)
[2019-03-19] VITALS (9 sets, daily range): BP systolic 113–154; BP diastolic 63–84
[2019-03-19] MEDS: PIPER-TAZ 3.375 GM 50 ML IV SCH ×4 (05:26→23:32)
[2019-03-19 05:58] LABS: BASOPHILS # (AUTO) 0.1 (0.0-0.1); BASOPHILS % 0.2 % (0.0-1.0); EOSINOPHILS % 0.1 % (0.0-6.0); HEMATOCRIT 37.6 % (34.2-44.1); HEMOGLOBIN 12.8 g/dL (12.0-16.0); LYMPHOCYTES # (AUTO) 1.6 (1.0-3.2); LYMPHOCYTES % 7.8 % (18.0-39.1); MEAN CORPUSCULAR HEMOGLOBIN 31.3 pg (28-32); MEAN CORPUSCULAR VOLUME 91.9 fL (81-99); MONOCYTES # (AUTO) 1.2 (0.2-0.8); NEUTROPHILS % 84.8 % (38.7-80.0); PLATELET COUNT 439 x10e3/uL (140-360); RED BLOOD COUNT 4.09 x10e6/uL (3.6-5.1); RED CELL DISTRIBUTION WIDTH 13.6 % (11.7-14.4)
[2019-03-19 06:15] LABS: ALANINE AMINOTRANSFERASE 53 IU/L (0-55); ALBUMIN 1.9 g/dL (3.5-5.0); ALBUMIN/GLOBULIN RATIO 0.5 (0.8-2.0); ALKALINE PHOSPHATASE 144 IU/L (40-150); AMYLASE 24 U/L (25-125); ANION GAP 11.2 mmol/L (8-16); BLOOD UREA NITROGEN < 5 mg/dL (7-26); CALCIUM 8.3 mg/dL (8.4-10.2); CARBON DIOXIDE 24 mmol/L (22-29); CHLORIDE 102 mmol/L (98-107); CREATININE, SERUM 0.51 mg/dL (0.57-1.11); EST GLOMERULAR FILTRATION RATE > 60 ML/MIN (60-); GLUCOSE 120 mg/dL (74-118); LIPASE 17 U/L (8-78); POTASSIUM 3.2 mmol/L (3.5-5.1); SODIUM 134 mmol/L (136-145)
[2019-03-19 06:17] LABS: BUN/CREATININE RATIO 10 (6-25)
--- NOTE | 2019-03-19 07:10 | NUR ---
pt asleep resp even and unlabored a this time no distress noted, pt easily aroused, and pt able to make needs known , call light in reach, will cont to monitor.
[2019-03-19] MEDS: PANTOPRAZOLE SOD 40 MG TABEC PO SCH (09:13)
[2019-03-19] MEDS: KCL 20MEQ/.9 SOD CHL 1,000 ML IV SCH (13:04)
--- NOTE | 2019-03-19 15:27 | NUR ---
Nutrition Screen Note RD Recommendation for Physician: Advance diet as tolerated to a Low fat diet. Plan of Care: RD following, monitoring for tolerance and adequacy Nutrition reason for involvement: LOS Primary Diagnose(s): Abdominal pain, Elevated LFTs, Hypokalemia PMH: Gallstones, Cholecystectomy, Ht:64 in Wt:194.38lb BMI:33.4 kg/m2 IBW:120lb +/-10% RD Assessment: (03/19/2019) Chart reviewed. Labs and meds reviewed. Initial encounter with patient. Pt states that her appetite is improving and has not been experiencing any nausea or vomiting. Denies any difficulty chewing or swallowing. No significant wt changes. Current Diet: Clear liquid diet Malnutrition Evaluation (03/19/2019) The patient does not meet criteria for a specified degree of malnutrition at this time. Will re-evaluate at follow-up as appropriate. Diet Education Needs Assessment: Diet education not indicated. Nutrition Care Level: Low Signed: Zachary Garcia RD, LD, [facility]
[2019-03-19] MEDS: ONDANSETRON HCL INJ 2MG/ML 2ML 2 MG/ML VIAL IV PRN (19:39)
[2019-03-19] MEDS: MORPHINE SULFATE INJ 4 MG/ML INJ 1ML IV PRN (19:39)
--- NOTE | 2019-03-19 19:43 | NUR ---
REPORT GIVEN TO ONCOMING NURSE, PT STABLE AT THIS TIME.
[2019-03-19] MEDS: ZOLPIDEM TARTRATE 10 MG TAB PO PRN (20:38)
[2019-03-20 00:22] VITALS: BP 111/69
[2019-03-20 06:15] VITALS: BP 130/76
[2019-03-20] MEDS: PIPER-TAZ 3.375 GM 50 ML IV SCH ×2 (06:19→12:36)
--- NOTE | 2019-03-20 07:11 | NUR ---
PT AWAKE RESP EVEN AND UNLABORED AT THIS TIME NO DISTRESS NOTED AT THIS TIME, PT SITING UPRIGHT IN BED, PT ABLE TO MAKE NEEDS KNOWN, NO C/O PAIN WHEN ASKED,CALL LIGHT IN REACH.
[2019-03-20 07:13] VITALS: BP 106/56
[2019-03-20] MEDS: PANTOPRAZOLE SOD 40 MG TABEC PO SCH (07:30)
[2019-03-20 09:36] LABS: BASOPHILS # (AUTO) 0.1 (0.0-0.1); BASOPHILS % 0.4 % (0.0-1.0); EOSINOPHILS # (AUTO) 0.1 (0.0-0.4); EOSINOPHILS % 0.4 % (0.0-6.0); HEMATOCRIT 40.8 % (34.2-44.1); HEMOGLOBIN 13.8 g/dL (12.0-16.0); LYMPHOCYTES # (AUTO) 1.6 (1.0-3.2); LYMPHOCYTES % 9.2 % (18.0-39.1); MEAN CORPUSCULAR HEMOGLOBIN 31.6 pg (28-32); MEAN CORPUSCULAR HGB CONC 33.8 g/dL (31-35); MEAN CORPUSCULAR VOLUME 93.4 fL (81-99); MONOCYTES # (AUTO) 1.1 (0.2-0.8); MONOCYTES % 6.2 % (4.4-11.3); NEUTROPHILS # (AUTO) 14.4 (2.1-6.9); NEUTROPHILS % 83.1 % (38.7-80.0); PLATELET COUNT 467 x10e3/uL (140-360); RED BLOOD COUNT 4.37 x10e6/uL (3.6-5.1); RED CELL DISTRIBUTION WIDTH 13.8 % (11.7-14.4)
[2019-03-20 09:59] LABS: ANION GAP 12.1 mmol/L (8-16); BLOOD UREA NITROGEN < 5 mg/dL (7-26); CALCIUM 8.7 mg/dL (8.4-10.2); CARBON DIOXIDE 24 mmol/L (22-29); CHLORIDE 102 mmol/L (98-107); CREATININE, SERUM 0.54 mg/dL (0.57-1.11); EST GLOMERULAR FILTRATION RATE > 60 ML/MIN (60-); GLUCOSE 133 mg/dL (74-118); POTASSIUM 3.1 mmol/L (3.5-5.1); SODIUM 135 mmol/L (136-145)
[2019-03-20 10:01] LABS: BUN/CREATININE RATIO 9 (6-25)
[2019-03-20 11:05] VITALS: BP 115/77
[2019-03-20 11:31] VITALS: BP 115/77
--- NOTE | 2019-03-20 13:37 | Discharge Summary ---
GASTROENTEROLOGY COLLAR BASTER JUMPBASTING: Shon Ramirez MD DISCHARGE DIAGNOSES: 1. Status post laparoscopic cholecystectomy for acute gangrenous cholecystitis. 2. Gallbladder bed fossa leak. 3. Pancreatitis. PROCEDURES PERFORMED DURING THIS HOSPITALIZATION: ERCP by Dr. Ramirez, drainage of gallbladder bed and aspiration of the gallbladder bed fossa by Interventional Radiology. HISTORY OF PRESENT ILLNESS AND HOSPITALIZATION COURSE: The patient is a pleasant 53-year-old female who underwent on March 08, 2019, laparoscopic cholecystectomy for acute cholecystitis with gangrenous changes. The patient had been seen in 2 emergency rooms prior to her admission for cholecystectomy. At both times, she was discharged home. The patient was seen in my office and admitted to the hospital and underwent urgent cholecystectomy. The patient did well postoperatively. She had a drain that was removed in the office on further followup as an outpatient. However, on March 13, she developed nausea and vomiting, reason for which she was readmitted. Admission workup at that time revealed a collection in the gallbladder bed fossa. She had leukocytosis and had been vomiting. The patient subsequent to the CT scan underwent a HIDA scan that revealed small bile leak in the gallbladder bed fossa. She subsequent to that was evaluated by GI and then underwent by Dr. Ramirez on 02/12/2004 for ERCP and stent placement. The patient post ERCP developed pancreatitis and leukocytosis. She was treated with intravenous antibiotics and then initially Flagyl, which was discontinued due to nausea. With this treatment and n.p.o. status, her condition improved. Diet was advanced. Her leukocytosis was resolving at the time of discharge. She was tolerating a regular diet well. The wounds were healing well and the kimberly were removed. Her abdomen was soft. She was discharged home on Levaquin 500 one a day for 7 days, Protonix 40 mg one p.o. daily, Zofran 4 mg one p.o. q. 4 to 6 hours p.r.n. for nausea #10. She will be seen in my office the week following discharge. She will also be calling Dr. Shon Ramirez for post ERCP followup and removal of the stent in approximately 10 weeks after its insertion. MD KAVEH Miller/[place] /[id number] cc: Shon Ramirez MD
== END 2019-03-20 15:00 | disposition home or self-care (01) | DRG 444 ==
LOC: ER 07:34 → ERHOLD 09:04 → MED/SURG2 09:36
PROVIDERS: ADMIT Surgery; ATTEND Surgery
PROC: BF111ZZ Fluoroscopy of Biliary and Pancreatic Ducts using Low Osmolar Contrast (ICD-10-PCS; 2019-03-14)
PROC: 0F798DZ Dilation of Common Bile Duct with Intraluminal Device, Via Natural or Artificial Opening Endoscopic (ICD-10-PCS; principal; 2019-03-14 18:00)
PROC: 0F943ZZ Drainage of Gallbladder, Percutaneous Approach (ICD-10-PCS; 2019-03-16)
DX: K91.5 Postcholecystectomy syndrome (principal); K85.80 Other acute pancreatitis without necrosis or infection; E87.1 Hypo-osmolality and hyponatremia; E87.6 Hypokalemia; Y83.2 Surgical operation with anastomosis, bypass or graft as the cause of abnormal reaction of the patient, or of later complication, without mention of misadventure at the time of the procedure; Y73.3 Surgical instruments, materials and gastroenterology and urology devices (including sutures) associated with adverse incidents; K52.89 Other specified noninfective gastroenteritis and colitis; I73.9 Peripheral vascular disease, unspecified; E86.0 Dehydration
CPT/HCPCS: 10160; 36415; 43260; 71045; 74177; 74328; 74470; 76942; 78226; 80048; 80053; 80307; 81001; 81025; 82150; 82550; 82553; 83690; 83735; 84484; 85025; 85610; 85730; 87071; 87075; 87086; 87205; 88112; 88305; 93005; 99284; A9537; C2625; J1100; J2001; J2250; J2270; J2405; J2543; J3010; J7030; Q9967

== ENCOUNTER → 2019-07-06 | Day surgery (SDC) | payer OTHER ==
[~2019-07-06] MED LIST changes: +FENTANYL CITRATE/PF 100MCG/2 ML INJ ONE; +IOPAMIDOL 300MG/ML 50ML INFUS..BTL IV ONE; +LIDOCAINE HCL 2% LOCAL INJ 5 ML SDV VIAL INJ ONE; +MIDAZOLAM HCL 2 MG/2 ML VIAL ONE; +PROPOFOL IV EMULSION 10 MG/ML 20 ML VIAL ONE; +TRAZODONE HCL50 MG PO
[2019-07-06 13:50] VITALS: BP 111/78
--- NOTE | 2019-07-06 14:05 | Diagnostic Imaging Report ---
EXAM: ERCP TO BE READ DATE: 07/06/2019 12:00 AM INDICATION: ERCP Fluoroscopy Time: 33 seconds. Reference Air Kerma (Ka, r): 23.67 mGy. FINDINGS/IMPRESSION: Please note that the examination was not performed by the radiologist. An intraoperative verbal report was not requested. Please refer to operative report for details. Initial landing support specialist images demonstrate plastic stent within the CBD. There is cannulation of the common bile duct. Contrast opacification demonstrates filling of the intrahepatic bile ducts with flow of contrast into the small bowel. There is no intrahepatic ductal dilatation. Tiny mobile filling defects are noted which likely represent small amount of air. No fixed filling defect is identified. Signed by: Dr. Flaco Maddox MD on 07/06/2019 2:02 PM
== END | disposition home or self-care (01) ==
LOC: ENDO 10:04
PROVIDERS: ATTEND Internal Medicine Gastroenterology
DX: K80.50 Calculus of bile duct without cholangitis or cholecystitis without obstruction (principal); K83.2 Perforation of bile duct; K57.30 Diverticulosis of large intestine without perforation or abscess without bleeding; D12.6 Benign neoplasm of colon, unspecified; K63.89 Other specified diseases of intestine; K64.8 Other hemorrhoids; Z87.891 Personal history of nicotine dependence; Z71.3 Dietary counseling and surveillance; E66.9 Obesity, unspecified; Z68.32 Body mass index [BMI] 32.0-32.9, adult; Z85.41 Personal history of malignant neoplasm of cervix uteri; Z90.49 Acquired absence of other specified parts of digestive tract; Z96.89 Presence of other specified functional implants
CPT/HCPCS: 43264; 43275; 74328; 93005; J2001; J2250; J2704; J3010; Q9967; 43260

== ENCOUNTER 2022-01-26 08:15 | Emergency (ER) | payer MEDICARE, OTHER ==
[~2022-01-26] VITALS: Ht 162.6 cm; Wt 88.0 kg
[~2022-01-26 08:15] MED LIST changes: -FENTANYL CITRATE/PF 100MCG/2 ML INJ ONE; -IOPAMIDOL 300MG/ML 50ML INFUS..BTL IV ONE; -LIDOCAINE HCL 2% LOCAL INJ 5 ML SDV VIAL INJ ONE; -MIDAZOLAM HCL 2 MG/2 ML VIAL ONE; -PROPOFOL IV EMULSION 10 MG/ML 20 ML VIAL ONE
[2022-01-26] MEDS ORDERED: KETOROLAC TROMETHAMINE 30 MG/ML VIAL IM STA (08:45)
[2022-01-26] MEDS ORDERED: LIDOCAINE 4% PATCH TP STA (08:45)
[2022-01-26] MEDS ORDERED: ACETAMINOPHEN 325 MG TAB PO ONE (08:45)
[2022-01-26] MEDS ORDERED: DEXAMETHASONE 4 MG TAB PO STA (08:45)
[2022-01-26] MEDS ORDERED: NAPROXEN250 MG PO (08:52)
[2022-01-26] MEDS ORDERED: LIDOCAINE1 EAC1 EXT (08:52)
[2022-01-26] MEDS ORDERED: METHOCARBAMOL500 MG PO (08:52)
== END 2022-01-26 09:25 | disposition home or self-care (01) ==
LOC: ER 08:24
DX: M54.50 Low back pain, unspecified (principal); Y93.E5 Activity, floor mopping and cleaning; E78.5 Hyperlipidemia, unspecified; G89.29 Other chronic pain
CPT/HCPCS: 99282; J1885; J8540

== ENCOUNTER 2022-06-13 14:05 | Emergency (ER) | payer MEDICARE, OTHER ==
[~2022-06-13] VITALS: Ht 162.6 cm; Wt 88.0 kg
[~2022-06-13 14:05] MED LIST changes: +LIDOCAINE1 EAC1 EXT; +METHOCARBAMOL500 MG PO; +NAPROXEN250 MG PO
[2022-06-13] MEDS ORDERED: ASPIRIN 81 MG CHEW TAB PO ONE (15:30)
[2022-06-13 15:38] LABS: BASOPHILS # (AUTO) 0.1 (0.0-0.1); BASOPHILS % 0.7 % (0.0-1.0); EOSINOPHILS # (AUTO) 0.1 (0.0-0.4); EOSINOPHILS % 1.2 % (0.0-6.0); HEMATOCRIT 48.7 % (34.2-44.1); HEMOGLOBIN 15.4 g/dL (12.0-16.0); LYMPHOCYTES # (AUTO) 3.3 (1.0-3.2); LYMPHOCYTES % 34.5 % (18.0-39.1); MEAN CORPUSCULAR HGB CONC 31.6 g/dL (31-35); MONOCYTES # (AUTO) 0.7 (0.2-0.8); MONOCYTES % 7.2 % (4.4-11.3); NEUTROPHILS # (AUTO) 5.4 (2.1-6.9); NEUTROPHILS % 56.1 % (38.7-80.0); PLATELET COUNT 305 x10e3/uL (140-360); RED BLOOD COUNT 4.82 x10e6/uL (3.6-5.1); RED CELL DISTRIBUTION WIDTH 12.2 % (11.7-14.4)
[2022-06-13] MEDS ORDERED: ONDANSETRON HCL INJ 2MG/ML 2ML 2 MG/ML VIAL IV ONE (15:53)
[2022-06-13 15:54] LABS: ALBUMIN 3.6 g/dL (3.5-5.0); ANION GAP 12.9 mmol/L (8-16); CALCIUM 9.3 mg/dL (8.4-10.2); CREATININE, SERUM 0.76 mg/dL (0.57-1.11); POTASSIUM 3.9 mmol/L (3.5-5.1)
[2022-06-13] MEDS ORDERED: FAMOTIDINE 20 MG TAB PO ONE (16:00)
[2022-06-13 16:01] LABS: CREATINE KINASE MB 1.5 ng/mL (0-5.0)
[2022-06-13] MEDS ORDERED: ONDANSETRON ODT4 MG PO (17:32)
[2022-06-13] MEDS ORDERED: PEPCID20 MG PO (17:32)
[2022-06-13 18:04] VITALS: BP 110/76
== END 2022-06-13 17:50 | disposition home or self-care (01) ==
LOC: ER 15:13
DX: R07.89 Other chest pain (principal); K21.9 Gastro-esophageal reflux disease without esophagitis
CPT/HCPCS: 36415; 71045; 80053; 82550; 82553; 83880; 84484; 85025; 85379; 93005; 99283